=== PATIENT | male | born 1960 | race Caucasian/White ===

== ENCOUNTER 2017-04-22 15:39 | Emergency (ER) | payer OTHER ==
[~2017-04-22] VITALS: Ht 165.1 cm; Wt 87.9 kg
[~2017-04-22 15:39] MED LIST: ACET500T84 PO; ALBU8.5H3 IH; ASPI325T32 PO; ATOR20TA38 PO; CARV6.2579 PO; Carvedilol PO; FAMO-96 PO; ISOS10TA2 PO; LISI-523 PO; LISI2.5T59 PO; NIT4 SL; TICA90TA PO
[2017-04-22 15:41] VITALS: Ht 165.1 cm; Wt 87.9 kg
[2017-04-22] MEDS ORDERED: DIPHTH/TET/ACEL PERTUSS (ADULT) 0.5 ML VIAL IM* ONE (17:30)
--- NOTE | 2017-04-22 17:36 | ERD ---
ER Documentation Chief Complaint Chief Complaint Complains of back pain after a fall from a ladder today at 1330 pm(10ft) HPI 56-year-old man complains of low back pain after fall from a ladder of about 8 foot height. He does recall the entire episode and denies loss of consciousness , he fell onto his back and struck the posterior scalp and low back, he was able to ambulate without difficulty denies abdominal pain, no chest pain, no shortness of breath. Patient denies paresis or paresthesias. ROS All systems reviewed and are negative except as per history of present illness. Medications Home Meds Active Scripts Carisoprodol* (Soma*) 350 Mg Tablet, 350 MG PO TID Y for MUSCLE SPASMS, #12 TAB Prov:MARQUITA JOHNSON MD 04/22/17 Ibuprofen* (Ibuprofen*) 600 Mg Tablet, 600 MG PO Q8 for PAIN AND/OR INFLAMMATION , #30 TAB Prov:MARQUITA JOHNSON MD 04/22/17 Ticagrelor* (Brilinta*) 90 Mg Tablet, 90 MG PO BID for 28 Days, BOTTLE Prov:EDVIN FATIMA MD 03/31/15 Nitroglycerin* (Nitrostat*) 25 Tab Subl, 1 TAB SL Q5M Y for CHEST PAIN for 28 Days, BOTTLE Prov:EDVIN FATIMA MD 03/31/15 Lisinopril* (Zestril*) 5 Mg Tab, 2.5 MG PO DAILY for 28 Days, BOT Prov:EDVIN FATIMA MD 03/31/15 Isosorbide Dinitrate* (Isordil*) 10 Mg Tab, 10 MG PO TID for 28 Days, BOT Prov:EDVIN FATIMA MD 03/31/15 [Carvedilol] 6.25 MG TAB No Conflict Check, 6.25 MG PO BID, #30 TAB Prov:EDVIN FATIMA MD 03/31/15 Atorvastatin Calcium* (Atorvastatin Calcium*) 20 Mg Tab, 80 MG PO DAILY@21 for 28 Days, BOTTLE Prov:EDVIN FATIMA MD 03/31/15 Reported Medications Carvedilol* (Carvedilol*) 6.25 Mg Tablet, 6.25 MG PO DAILY 10/31/12 Aspirin (Aspirin) 325 Mg Tablet.dr, 325 MG PO DAILY 10/31/12 Lisinopril* (Lisinopril*) 2.5 Mg Tablet, 2.5 MG PO DAILY 10/31/12 Albuterol Sulfate* (Proair HFA*) 8.5 Gm Hfa.aer.ad, 8.5 GM IH PRN 10/31/12 Famotidine* (Pepcid*) 20 Mg Tablet, 20 MG PO DAILY 10/31/12 Nitroglycerin* (Nitrostat*) 0.4 Mg Tab.subl, 0.4 MG SL PRN 10/31/12 Acetaminophen (Q-Pap Extra Strength) 500 Mg Tablet, 500 MG PO QID 10/31/12 Allergies Allergies: Coded Allergies: No Known Allergy (Unverified , 09/10/12) PMhx/Soc itted with acute STEMI. He was seen by Dr. Camacho in consultation and had emergent left heart catheterization, selective right and left coronary angiography, thrombectomy of the left circumflex artery, and successful percutaneous transluminal coronary angioplasty and stenting of the left circumflex artery from 100% occlusion to less than 10%. The patient was followed by Dr. Howard and Dr. Gale in consultation. The patient's echocardiogram was done and shows patient has ejection fraction of 45% to 50%. Patient had a second angiogram shows left heart catheterization, coronary angiography with percutaneous transluminal coronary angioplasty with placement of stent to the diagonal branch. The patient post-procedure was monitored and stabilized. The patient was cleared by the medical economics consultant to be discharged home. DISCHARGE DIAGNOSES INCLUDE: 1. ST-elevation myocardial infarction. 2. Status post angiogram x2. 3. The patient is status post thrombectomy. 4. Patient had successful percutaneous transluminal coronary angioplasty and stenting of the left circumflex artery. 5. Patient has the angioplasty and placement of stent to the diagonal branch. The patient's other diagnoses include: 1. Hypertension. 2. History of coronary artery disease. 3. Anemia. 4. Dyslipidemia. 5. Positive troponin. History of Surgery: Yes (STENTS) Anesthesia Reaction: No Hx Neurological Disorder: No Hx Respiratory Disorders: No Hx Cardiac Disorders: Yes (NV, HTN) Hx Psychiatric Problems: No Hx Miscellaneous Medical Probl: No Hx Alcohol Use: Yes (SOMETIMES) Hx Substance Use: No Hx Tobacco Use: Yes (6 CIGAREETES PER DAY) Smoking Status: Current every day smoker FmHx Family History: No diabetes Physical Exam Vitals Vital Signs Date Time Temp Pulse Resp B/P Pulse Ox O2 Delivery O2 Flow Rate FiO2 04/22/17 19:37 98.9 77 20 155/72 98 Room Air 04/22/17 18:25 74 20 176/99 98 Room Air 04/22/17 15:41 98.9 94 20 167/103 97 Physical Exam GENERAL: Well-developed, well-nourished, well-hydrated, in no apparent distress , looks nontoxic in appearance HEENT: Moist mucous membranes, pink conjunctiva, no cervical spine tenderness or step-off deformities, no goiter, no jaundice or icterus, extraocular movements intact without pain. No submandibular induration, and no pharyngeal erythema NEURO: Alert and oriented 3, cranial nerves II through XII intact bilaterally, pupils equal round reactive to light, no focal deficits or facial asymmetry, sensation intact distally Strength 5/5 in upper and lower extremities bilaterally CARDIAC: Regular rate and rhythm, no murmurs rubs or gallops LUNGS: Clear bilaterally no wheezing crackles or stridor ABDOMEN: Soft nontender, no guarding, no rigidity, no rebound, no psoas sign no obturator sign. Normoactive bowel sounds SKIN: Warm and dry to touch, superficial abrasions to the mid and low back without active bleeding, no obvious hematomas EXTREMITIES: No clubbing cyanosis or edema, calves are bilaterally symmetrical, no Homans sign, no popliteal cord sign. Distal pulses equal and bilateral PSYCH: Normal affect without agitation or irritability Results 24 hrs Current Medications Medications (Trade) Dose Ordered Sig/Morenita Route PRN Reason Start Time Stop Time Status Last Admin Dose Admin Diphtheria/ Tetanus/Acell Pertussis (Adacel) 0.5 ml ONCE ONCE IM* 04/22/17 17:30 04/22/17 18:57 DC 04/22/17 19:35 Clonidine (Catapres) 0.1 mg ONCE ONCE PO 04/22/17 17:30 04/22/17 17:47 DC 04/22/17 18:25 Procedures/MDM CT scan of the brain was negative for acute bleed mass or shift. CT cervical spine was negative for acute fracture or dislocation. Three-view x-ray of the lumbar back was performed, read by me, no acute fracture dislocation noted. Positive arthritic changes. Patient had superficial abrasions to the back and I treated him here with tetanus toxoid 0.5 mL IM 1, for hypertension he received clonidine 0.1 mg p.o. with good effect. Differential diagnoses considered, included but not limited to acute coronary syndrome, pulmonary embolism, aortic dissection, abdominal aortic aneurysm, sepsis, stroke, meningitis, encephalitis, pneumonia, appendicitis, cholecystitis , bowel obstruction, pyelonephritis, nephrolithiasis, cystitis, as well as metabolic, hematologic, and electrolyte abnormalities. As well as abscess, cellulitis, fractures, and dislocations. Patient feels much better at this time, and vital signs are normal, symptoms have improved. I did give strict instructions to return to the ED if symptoms continue or worsen, patient will otherwise follow-up with primary care physician. Patient understood instructions and agreed to plan. Disclaimer: Inadvertent spelling and grammatical errors are likely due to EHR/ dictation software use and do not reflect on the overall quality of patient care. Also, please note that the electronic time recorded on this note does not necessarily reflect the actual time of the patient encounter. Departure Diagnosis: Primary Impression: Abrasion Additional Impressions: Back sprain Fall Encounter type: initial encounter Qualified Code: W19.XXXA - Fall, initial encounter Hypertension Hypertension type: essential hypertension Qualified Code: I10 - Essential hypertension Condition: Good MARQUITA JOHNSON MD Apr 22, 2017 17:36
--- NOTE | 2017-04-22 18:05 | RADRPT ---
PROCEDURE: XR Lumbar Spine. CLINICAL INDICATION: Pain, concern for fracture. TECHNIQUE: 5 views of the lumbar spine are available for review COMPARISON: None available FINDINGS: There is maintenance of normal lumbar lordosis. Alignment is intact. No acute fracture or disloca tion is seen. The vertebral body heights are preserved. There are multilevel mild degenerative changes of lumbar s pine, most pronounced at L1-L2 and L5-S1. Aortic atherosclerotic vascular calcifications are identified. IMPRESSION: 1. No acute fracture or dislocation. 2. Multilevel mild discogenic disease of lumbar spine, most pronounced at L1-L2 and L5-S1. 3. Aortic atherosclerosis. RPTAT: HFN .Barry Soriano MD, Date Time Electronically viewed and signed by .Barry Soriano MD, on 04/22/2017 18:05 .N/
--- NOTE | 2017-04-22 18:08 | RADRPT ---
PROCEDURE: Noncontrast CT Head. CLINICAL INDICATION: "Rule out bleed" TECHNIQUE: Noncontrast CT of the head was obtained. The administered radiation dose was CTDI vol = 44.4 mGy, DLP = 720.23 mGy-cm. One or more of the following dose reduction techniques were used: Aut omated exposure control, Adjustment of the mA and/or kV according to patient size, or Use of iterati ve reconstruction technique. COMPARISON: There are no similar studies submitted for comparison. FINDINGS: There is no acute intracranial hemorrhage, midline shift, or mass effect. The cerebral fuentes-white ma tter differentiation appears preserved. No extra-axial collection is seen. The cerebral sulci and v entricles are within normal limits in size and configuration for patient's age. Cavum septum pelluci dum/cavum vergae is noted. There is a small chronic lacunar infarct of the right caudate head. Mild low attenuation scattered in the periventricular and deep cerebral white matter is nonspecific, but suggestive of mild chronic microangiopathic change. The basal cisterns are preserved. The brainstem and cerebellum are grossly unremarkable, although suboptimally evaluated with CT secondary to beam-h ardening artifact. There is intracranial calcific atherosclerotic disease involving the internal car otid arteries bilaterally. The vertebral basilar system is tortuous. The right frontal sinus is hypo plastic. There is moderate mucosal thickening in the left frontal sinus, right ethmoid sinus, and partially imaged left maxillary sinus. There is mild mucosal thickening in the partially imaged left ethmoid sinus. There is focal small polypoid mucosal thickening versus retention cyst within the le ft sphenoid sinus. The visualized mastoid air cells are clear. No acute fracture is identified. IMPRESSION: 1. No evidence of an acute intracranial process. 2. Small chronic lacunar infarct in the right caudate head. 3. Evidence of mild chronic microangiopathic cerebral white matter change. 4. Intracranial calcific atherosclerotic disease. 5. Paranasal sinus mucosal thickening, as described above. RPTAT: [facility] Physician Brett Date Time Electronically viewed and signed by Physician Brett on 04/22/2017 18:08 RC/
--- NOTE | 2017-04-22 18:10 | RADRPT ---
PROCEDURE: CT CERVICAL SPINE WITHOUT CONTRAST CLINICAL INDICATION: Fall TECHNIQUE: CT scan of the cervical spine was performed. No IV contrast was administered. Coronal and sagittal reformatted images were obtained from the axial source images. Images were reviewed on a high-resolution PACS workstation. DICOM images are available. Dose report: CTDI 22 mGy, DLP 488 mGy-cm One or more of the following dose reduction techniques were used: Automated exposure control Adjustment of the mA and/or kV according to patient size. Use of iterative reconstruction technique. COMPARISON: None FINDINGS: The vertebral body heights are preserved. There are no acute fractures. There is straightening of the normal cervical lordosis with slight kyphosis. The craniocervical junction and C1-C2 articulatio n are intact. There is mild joint space narrowing and osseous spurring at the C1-C2 articulation. Th e prevertebral soft tissues are within normal limits. Paraspinal musculature is unremarkable. Findings at specific disc levels: C2-3: Normal disc height. Minimal posterolateral osseous ridging. No central canal or neural foramin al narrowing. Mild left facet arthropathy. C3-4: Normal disc height. Minimal annular bulge but no central canal or neural foraminal narrowing. Mild bilateral facet arthropathy. C4-5: Normal disc height. Minimal annular bulge but no central canal or neural foraminal narrowing. Mild bilateral facet arthropathy. C5-6: Mild to moderate loss of disc height with minimal vacuum disc and anterior endplate osteophyte s. Posterior/posterolateral osseous ridging more prominent on the right with severe right and modera te to severe left neural foraminal narrowing with uncovertebral degenerative changes. No central can al narrowing. C6-7: Mild loss of disc height. Mild annular bulge and left greater than right posterolateral osseou s ridging but no central canal narrowing. Moderate to severe left and mild to moderate right neural foraminal narrowing. C7-T1: Normal disc height. Mild left posterolateral osseous ridging with mild left neural foraminal narrowing. No central canal or right neural foraminal narrowing. Mild left facet arthropathy. There are mild atherosclerotic calcifications within the bilateral carotid bulbs. RPTAT: QQ IMPRESSION: 1. No acute fracture or dislocation. 2. Severe right and moderate to severe left neural foraminal narrowing at C5-C6 with prominent disc osteophytes and mild to moderate degenerative disc disease. 3. Moderate to severe left and mild to moderate right neural foraminal narrowing at C6-C7 with mild degenerative disc disease. .Ladi Delacruz MD, Date Time Electronically viewed and signed by .Ladi Delacruz MD, on 04/22/2017 18:10 .T/
[2017-04-22] MEDS ORDERED: IBUP-1542 PO (18:38)
[2017-04-22] MEDS ORDERED: CARI350T PO (18:38)
[2017-04-22 19:37] VITALS: BP 155/72; PULSE 77; RESP 20; TEMP 98.9
== END 2017-04-22 19:35 | disposition home or self-care (01) ==
LOC: E/R 15:39
DX: S33.5XXA Sprain of ligaments of lumbar spine, initial encounter (principal); I10 Essential (primary) hypertension; R51 Headache; W11.XXXA Fall on and from ladder, initial encounter; Y92.9 Unspecified place or not applicable; Z79.82 Long term (current) use of aspirin
CPT/HCPCS: 70450; 72110; 72125; 90471; 90715; Z7502; Z7610

== ENCOUNTER 2018-01-04 15:32 | Emergency (ER) | END 2018-01-04 17:40 | disposition home or self-care (01) ==

== ENCOUNTER 2018-01-09 11:06 | Emergency (ER) | END 2018-01-09 12:49 | disposition left against medical advice (07) ==

== ENCOUNTER 2018-01-10 16:21 | Emergency (ER) | END 2018-01-10 18:28 | disposition home or self-care (01) ==